=== PATIENT | female | born 1985 | race Hispanic/Latino ===

== ENCOUNTER → 2018-08-21 | Day surgery (SDC) | payer BC ==
[~2018-08-21] MED LIST: ACETAMINOPHEN 1000 MG/100 ML 100 ML IV ONE; BALANCED SALT SOLN (OPTH) 15 ML BTL IO ONE; BUPIVACAINE 0.5%/EPI 30 ML SDV INJ ONE; DEXAMETHASONE SOD PHOS INJ 4 MG/ML VIAL ONE; FENTANYL CITRATE/PF 100MCG/2 ML INJ ONE; GLYCOPYRROLATE INJ 1MG/ 5 ML SYR ONE; HYDRALAZINE HCL 20 MG/ML VIAL ONE; LABETALOL HCL 5 MG/ML 20ML VIAL ONE; LIDOCAINE HCL 2% JELLY 5 ML TUBE ONE; LIDOCAINE HCL 2% LOCAL INJ 5 ML SDV VIAL INJ ONE; MIDAZOLAM HCL 2 MG/2 ML VIAL ONE; NEOSTIGMINE 5 MG/5ML SYR ONE; ONDANSETRON HCL INJ 2MG/ML 2ML 2 MG/ML VIAL ONE; PROPOFOL IV EMULSION 10 MG/ML 20 ML VIAL ONE; ROCURONIUM BROMIDE 10 MG/ML 5ML VIAL ONE; SEVOFLURANE INHAL SOLN 250 ML PEN BTL ONE; SUGAMMADEX SODIUM 200 MG/2 ML VIAL IV ONE
--- OUTSIDE RECORDS SUMMARY | 2018-08-21 07:41 | XMS REPORT | Continuity of Care Document ---
Author Author [facility] Interface Address Unknown Phone Unavailable Problems Problem Status Onset Date Classification Date Reported Comments Source Acute gastroenteritis 07/29/2016 Diagnosis 07/29/2016 [facility] Body mass index 30+ - obesity 07/29/2016 Diagnosis 07/29/2016 [facility] Medications Medication Details Route Status Patient Instructions Ordering Provider Order Date Source Ciprofloxacin 500 MG Oral Tablet ciprofloxacin 500 mg tablet Take 1 tablet every day by oral route with meals. Active [facility] Ondansetron 8 MG Disintegrating Oral Tablet ondansetron [address] 1 tablet every 8 hours by translingual route as needed for 2 days. Active [facility] Allergies, Adverse Reactions, Alerts Substance Category Reaction Severity Reaction type Status Date Reported Comments Source Immunizations Immunization Date Given Site Status Last Updated Comments Source Results Order Name Results Value Reference Range Date Interpretation Comments Source Influenza A negative 07/29/2016 [facility] Influenza B negative 07/29/2016 [facility] Vital Signs Vital Sign Value Date Comments Source Diastolic (mm Hg) 78 07/29/2016 [facility] Height 62 07/29/2016 [facility] Systolic (mm Hg) 102 07/29/2016 [facility] Weight 206 07/29/2016 [facility] Encounters Location Location Details Encounter Type Encounter Number Reason For Visit Attending Provider ADM Date DC Date Status Source [place] - [facility] - [id number] Melissa Jimenez, [employer]: [address] [address], Ph. [id number] Melissa Jimenez 07/29/2016 [facility] Procedures Procedure Code Date Perfomer Comments Source Removal of Gallbladder [facility] Tubal Ligation [facility]
--- OUTSIDE RECORDS SUMMARY | 2018-08-21 07:41 | XMS REPORT | Encounter Summary ---
Author Organization Unknown Address [address] [place] [id number] Phone [phone] Reason for Visit Medical Complaint Instructions 1. Acute gastroenteritis rapid flu (A+B) ondansetron 8 mg disintegrating tablet ciprofloxacin 500 mg tablet soft-textured, bland diet: care instructions oral rehydration: care instructions 2. Body mass index 30+ - obesity eating healthy foods: care instructions Discussion Note F/U with your PCP within 3-5 days if s/s continue or worsen. Handout that was given and reviewed and pt verbalized understanding. For worsenening symptoms or shortness/ chest pain develop F/U with ER [facility]. Plan of Care Patient Instructions Take charge of your health handout given and discussed. Reminders Provider Appointments None recorded. Lab Rapid Flu (A+B) 07/29/2016 [facility] Referral None recorded. Procedures None recorded. Surgeries None recorded. Imaging None recorded. Medications Name Start Date ciprofloxacin 500 mg tablet Take 1 tablet every day by oral route with meals. ondansetron [address] 1 tablet every 8 hours by translingual route as needed for 2 days. Medications Administered None recorded. Vitals Height Weight BMI Blood Pressure 5 ft 2 in 206 lbs 37.7 102/78 Lab Results Date Name Specimen Result Interpretation Description Value Range Status Address Rapid Flu (A+B) Influenza a negative [facility]: [address] [place] [address] Influenza B negative [facility]: [address] [place] [address] Allergies Code Code System Name Reaction Severity Onset NKDA Problems None recorded. Procedures Date Name Performed by Removal of Gallbladder Information not available Tubal Ligation Information not available Vaccine List None recorded. Social History Smoking Status Never Smoker Past Encounters 07/29/2016 Acute Gastroenteritis; Body Mass Index 30+ - Obesity Melissa Jimenez NP: [id number] [place] [address], Ph. History of Present Illness Zlherx-Talbxwnn-Stvycyrg / Abdominal Pain Reported By: Patient HPI: Quality: worsening, watery, frequent. Severity: moderate. Duration: present for < 1 week. Onset/Timing: worse in the afternoon, worse with meals, 10-20 times a day. Context: no one else with similar symptoms, no recent camping, no recent picnic, no possible food sources, no recent travel, last bowel movement:; last meal was beet soup. Aggravating factors: eating. Associated Symptoms: no excess gas, no fever/chills, no rash, no joint pain, no weight loss, no nausea, no heartburn, no blood in stool, no mucus in stool, no black or tarry stools, no weakness, no nutrient deficiency, no headache, no feeling of fullness/mass in throat, no muscle aches, no bitter taste in the mouth, no difficulty swallowing (dysphagia), abdominal pain, vomiting, cramping Review of Systems:ROS as noted in the HPI Review of Systems Basic Reported By: Patient Physical Exam Adult Basic, Adult Female Complete Reported By: Patient Constitutional: General Appearance: healthy-appearing, well-nourished, well-developed. Level of Distress: NAD. Ambulation: ambulating normally Psychiatric: Mental Status: active and alert. Orientation: to time, to place, to person Eyes: Lids and Conjunctivae: non-injected, no discharge, no pallor. Pupils: PERRLA. EOM: EOMI Jkr-Pmfl-Zekwb-Throat: Ears: no lesions on external ear, no outer ear tenderness, EACs clear, TMs clear. Hearing: no hearing loss. Nose: no lesions on external nose, nares patent, no septal deviation, nasal passages clear, no sinus tenderness, no nasal discharge. Lips, Teeth, and Gums: no mouth or lip ulcers. Oropharynx: moist mucous membranes, no erythema, no exudates, tonsils not enlarged Neck: Neck: supple. Lymph Nodes: no cervical LAD Lungs: Respiratory effort: no dyspnea, no tachypnea, no use of accessory muscles, no intercostal retractions. Auscultation: breath sounds normal Cardiovascular: Heart Auscultation: RRR, no murmurs Neurologic: Gait and Station: normal gait, normal station Abdomen: Bowel Sounds: ; hyperactive BS. Inspection and Palpation: soft, non-distended, no tenderness, no guarding, no rebound tenderness, no masses, no CVA tenderness. Liver: non-tender, no hepatomegaly. Spleen: non-tender, no splenomegaly
[2018-08-21 13:28] VITALS: BP 112/87
--- NOTE | 2018-08-21 18:52 | Operative Report ---
DATE OF PROCEDURE: 08/21/2018 SURGEON: Anand Allison MD CHIEF COMPLAINT: Recurrent tonsillitis. POSTOPERATIVE DIAGNOSIS: Recurrent tonsillitis. OPERATIVE PROCEDURE: Tonsillectomy. ANESTHESIA: Dr. Baird. INDICATIONS: This 32-year-old female has four episodes of tonsillitis over the past four months. The patient also has discomfort in the throat. She has been treated with multiple antibiotics and systemic steroid with no improvement of the condition. On examination, she was noted to have 3+ tonsils bilaterally with exudate. It was decided that tonsillectomy and other necessary procedure will be beneficial for her. DESCRIPTION OF PROCEDURE: The patient was taken to operating room, put under general anesthesia, endotracheally intubated. The patient was put in Citlalli position and McIvor mouth gag was inserted. Tonsillar fossas were injected with 0.5% Marcaine with 1:200,000 epinephrine. The right tonsil was retracted medially. A plane was created between the tonsil and tonsillar bed. Dissection was carried down to the inferior pole and tonsil was snared off. Similar procedure was carried on the contralateral side. Again, the left tonsil was retracted medially. A plane was created between the tonsil and tonsillar bed. Dissection was carried on the inferior pole. Tonsil was snared off. Hemostasis in tonsillar fossas was achieved using suction cautery. Nasopharynx, oropharynx and oral cavity were irrigated with copious amount of normal saline. The stomach was suctioned out at the end of procedure. The patient tolerated the above procedure well with estimated blood loss about 30 mL. She was given 20 mg of Decadron intraoperatively. The patient was able to be transferred to recovery room in stable condition. Anand Allison MD DKH/MODL /[id number]
--- NOTE | 2018-08-22 11:35 | Pre Op History & Physical ---
DATE OF ANTICIPATED SURGERY: 08/21/2018. CHIEF COMPLAINT: This 10-bchxs-clo female has a chief complaint of recurrent tonsillitis. HISTORY OF PRESENT ILLNESS: This 89-ih[age] female has four episodes of tonsillitis over the past four months. The patient has a foreign body sensation in the throat over the past week. The patient has no airway distress. She does have loud snoring with no obvious apneic episode. The patient has been treated with multiple antibiotics including clindamycin recently with recurrence of the problem. The patient has been missing work. A CT scan of the neck that was done when the patient went to the ER. A plain film of the neck that was done in the ER when the patient was having the discomfort did not show any abnormality. REVIEW OF SYSTEMS: System review showed no recent cardiovascular, respiratory, or GI problem. PAST MEDICAL HISTORY: The patient has no significant medical problem. PAST SURGICAL HISTORY: The patient has previous cholecystectomy and tubal ligation. ALLERGIES: SHE HAS NO ALLERGY TO MEDICATION. MEDICATION: She is not on any regular medication. SOCIAL HISTORY: She is nonsmoker and nondrinker. FAMILY HISTORY: Noncontributory. PHYSICAL EXAMINATION: VITAL SIGNS: On examination, patient's vital signs were within normal limits. EAR: Showed normal tympanic membranes bilaterally. NASAL: Showed no obvious abnormality. OROPHARYNX: Oral cavity shows 3+ tonsils bilaterally with exudate. The patient has no trismus. NECK: No lymph nodes or thyroid palpable. CHEST: Showed good air entry bilaterally. CARDIOVASCULAR: Showed S1, S2. No murmur noted. ASSESSMENT AND PLAN: Mrs. Lopez has recurrent tonsillitis and tonsillar hypertrophy, which has been resistant to conservative therapy. Suggested treatment is tonsillectomy, possible adenoidectomy and other necessary procedure. The complication of procedure includes, but not limited to bleeding, infection, hyponasal speech, nasal regurgitation of food, airway distress, recurrence of a sore throat, of the foreign body sensation. Alternatives will be continue observation, continue antibiotic therapy, topical nasal steroid therapy, systemic steroid therapy, decongestant. The patient has elected to undergo surgical procedure. MD GUSTAVO Zelaya/PANCHO /[id number]
== END | disposition home or self-care (01) ==
LOC: OR 07:38
PROVIDERS: ATTEND Otolaryngology Otolaryngology/Facial Plastic Surgery
DX: J03.91 Acute recurrent tonsillitis, unspecified (principal); E78.5 Hyperlipidemia, unspecified; F41.9 Anxiety disorder, unspecified
CPT/HCPCS: 42826; 81025; 88304; J0131; J0360; J1100; J2001 ×2; J2250; J2405; J2704; J3490 ×2